=== PATIENT | female | born 1995 | race American Indian/Alaskan Native ===

== ENCOUNTER 2018-09-15 16:39 | Emergency (ER) | payer OTHER ==
[2018-09-15] MEDS ORDERED: Sodium Chloride 0.9% 1,000 ML IV ONE (17:24)
[2018-09-15 17:58] LABS: BASO % 0.2 % (0.0-2.0); HEMOGLOBIN 12.1 g/dL (11.0-16.0); LYMPH # 1.3 K/uL (1.0-4.3); LYMPH % 8.1 % (20.0-40.0); MEAN CELL VOLUME 90.3 fL (81.0-99.0); MEAN CORPUSCULAR HEMOGLOBIN 29.6 pg (27.0-31.0); MEAN CORPUSCULAR HGB CONC 32.7 g/dL (33.0-37.0); MEAN PLATELET VOLUME 9.4 fL (7.2-11.7); MONO # 1.8 K/uL (0.0-0.8); MONO % 11.5 % (0.0-10.0); NEUT # 12.8 K/uL (1.8-7.0); NEUT % 80.2 % (50.0-75.0); PLATELET COUNT 266 K/uL (130-400); RBC 4.11 Mil/uL (3.80-5.20); RED CELL DISTRIBUTION WIDTH 12.9 % (11.5-14.5)
[2018-09-15 18:01] VITALS: RESP 20
[2018-09-15 18:08] LABS: ALB/GLOB RATIO 1.3 (1.0-2.1); ALBUMIN 4.3 g/dL (3.5-5.0); ALT/SGPT 7 U/L (9-52); AST/SGOT 15 U/L (14-36); BLOOD UREA NITROGEN 10 mg/dL (7-17); CALCIUM 9.5 mg/dl (8.6-10.4); GFR NON-AFRICAN AMERICAN > 60
[2018-09-15 18:13] LABS: HCG,QUALITATIVE URINE NEGATIVE (NEGATIVE)
--- NOTE | 2018-09-15 18:16 | C.PDOC ---
History Of Present Illness 23 year old female presents to the ED complaining of fever for the past two days. She reports general body aches and possible mild dysuria. The patient denies any headache, neck stiffness, vomiting, SOB, cough, sore throat, runny nose, diarrhea or vaginal bleeding. She offers no further medical complaints at this time. Time Seen by Provider: 09/15/18 17:39 Chief Complaint (Nursing): Fever History Per: Patient History/Exam Limitations: no limitations Onset/Duration Of Symptoms: Days Current Symptoms Are (Timing): Still Present Associated Symptoms: Fever, Myalgias. denies: Chills, Sore Throat, Cough, Neck Pain, Vomiting, Diarrhea Recent travel outside of the [place]: No Past Medical History Reviewed: Historical Data, Nursing Documentation, Vital Signs Vital Signs: Last Vital Signs Temp 100.2 F H 09/15/18 18:00 Pulse 125 H 09/15/18 18:00 Resp 20 09/15/18 18:00 BP 100/66 09/15/18 18:00 Pulse Ox 100 09/15/18 18:00 - Medical History PMH: No Chronic Diseases Surgical History: No Surg Hx Family History: States: Unknown Family Hx - Social History Hx Alcohol Use: No Hx Substance Use: No Review Of Systems Except As Marked, All Systems Reviewed And Found Negative. Constitutional: Negative for: Fever ENT: Negative for: Nose Discharge, Other (sore throat) Respiratory: Negative for: Cough Gastrointestinal: Negative for: Vomiting, Diarrhea Musculoskeletal: Negative for: Neck Pain Physical Exam - Physical Exam Additional Physical Exam Comments: Constitutional: No acute distress. Head: Normocephalic. Atraumatic. Eyes: PERRL. ENT: Moist mucous membranes. Neck: Supple. Cardiovascular: Tachycardic. Radial pulse 2+ bilaterally. Chest: No tenderness. Respiratory: Clear to auscultation bilaterally. GI: Soft. Nontender. Nondistended. Back: No CVA tenderness. Musculoskeletal: No tenderness or swelling of extremities. Skin: No rash. warm to touch. Neurologic: Alert, no focal deficit. ED Course And Treatment - Laboratory Results Result Diagrams: 09/15/18 17:54 09/15/18 17:54 O2 Sat by Pulse Oximetry: 100 (RA) Pulse Ox Interpretation: Normal Against Medical Advice - AMA Patient Left Against Medical Advice: The patient declines admission to the hospital and wishes to leave the Emergency Department. This action is against my medical advice. This decision was made with informed refusal. The patient was told that admission to the hospital is necessary. Explanation of the reasons why were discussed. The risks of leaving were explained to the patient and include, but are not limited to, worsening of known or currently unknown conditions, permanent disability and from undiagnosed or untreated conditions. The patient has the capacity to make this informed decision and understands my explanation of the current medical problem and risks of leaving. The patient voluntarily accepts these risks and signed an AMA form documenting our conversation. The patient was given the opportunity to ask questions and reconsider. The pat ient was encouraged to return to the Emergency Department at any time for further care. Medical Decision Making Medical Decision Making: Impression: 23 yo female with fever x 2 days, general body aches and possible mild dysuria. Plan: -EKG -CMP -CBC -IV Fluids -Toradol 30 mg IV -Tylenol 325 mg -Urine culture -HCG -Ua UA shows UTI. Fever and HR improving but still elevated. Lactate 2.0. Patient offered admission but she refused. Disposition - Disposition Referrals: [facility] [Outside] Disposition: AGAINST MEDICAL ADVICE Disposition Time: 19:11 Condition: FAIR Prescriptions: Acetaminophen [Tylenol 325mg tab] 2 tab PO Q4H #30 tab Ciprofloxacin [Cipro] 500 mg PO BID #14 tab Ibuprofen [Motrin] 1 tab PO Q6 #30 tab Instructions: Urinary Tract Infections in Adults, Sepsis in Adults Forms: [facility] ([place]alander) - Clinical Impression Clinical Impression: UTI (urinary tract infection), Fever, Sepsis - Scribe Statement The provider has reviewed the documentation as recorded by the Scribe (Eulalia Serna) Provider Attestation: All medical record entries made by the Scribe were at my direction and personally dictated by me. I have reviewed the chart and agree that the record accurately reflects my personal performance of the history, physical exam, medical decision making, and the department course for this patient. I have also personally directed, reviewed, and agree with the discharge instructions and disposition.
[2018-09-15 18:18] LABS: BANDS 3 % (0-2); LARGE PLATELETS PRESENT; LYMPHOCYTE 8 % (20-40); MONOCYTE 7 % (0-10); NEUTROPHIL 82 % (50-75); PLATELET ESTIMATE NORMAL (NORMAL); TOTAL CELLS COUNTED 100
[2018-09-15 18:20] LABS: SQUAMOUS EPITHIAL 7 /hpf (0-5); URINE BACTERIA RARE (<OCC); URINE BILIRUBIN NEGATIVE (NEGATIVE); URINE BLOOD 2+ (NEGATIVE); URINE CLARITY Hazy (Clear); URINE COLOR Yellow (YELLOW); URINE GLUCOSE (UA) NORMAL (Normal); URINE LEUKOCYTE ESTERASE 3+ Leu/uL (Negative); URINE PROTEIN 1+ mg/dL (NEGATIVE); URINE UROBILINOGEN NORMAL mg/dL (0.2-1.0)
[2018-09-15 18:58] LABS: VENOUS BLOOD GAS BASE EXCESS -2.1 mmol/L (0.0-2.0); VENOUS BLOOD GAS PCO2 31 mmHg (40-60); VENOUS BLOOD GAS PO2 47 mm/Hg (30-55); VENOUS BLOOD PH 7.44 (7.32-7.43)
[2018-09-15 19:33] VITALS: BP 111/65; PULSE 113; TEMP 99.3; O2SAT 99
--- NOTE | 2018-09-18 19:12 | CARD ---
APPROVED REPORT Date of service: 09/15/2018 EKG Measurement Heart [id number] <Conclusion> Sinus tachycardia Right atrial enlargement Nonspecific ST and T wave abnormality Abnormal ECG
== END 2018-09-15 19:33 | disposition left against medical advice (07) ==
LOC: C.ER 16:39
DX: N39.0 Urinary tract infection, site not specified (principal); A41.9 Sepsis, unspecified organism; R50.9 Fever, unspecified
CPT/HCPCS: 80053; 81001; 82803; 84703; 85025; 87040; 87086; 87181; 87804; 96361; 96374; 99285; J1885; J7030

== ENCOUNTER 2018-09-17 18:57 | Emergency (ER) | payer OTHER ==
[2018-09-17 19:06] VITALS: O2SAT 100
--- NOTE | 2018-09-17 19:35 | C.PDOC ---
History Of Present Illness 23 year old female presents to the ER with a complaint of abdominal pain that began today. Patient was seen in the ER two days ago and diagnosed with UTI. She reports she has been compliant with her medications but still complains of dysuria and some subjective fever. Denies nausea, vomiting, or diarrhea. LMP was 09/01/18. During her initial visit patient was found to have 16 WBCs with a shift, normal lactate, UA was positive, flu swab was negative, final culture shows positive staph with sensitivity for cipro, patient was discharged on cipro. Time Seen by Provider: 09/17/18 19:19 Chief Complaint (Nursing): Abdominal Pain History Per: Patient History/Exam Limitations: no limitations Onset/Duration Of Symptoms: Hrs Current Symptoms Are (Timing): Still Present Location Of Pain/Discomfort: LLQ Radiation Of Pain To:: None Quality Of Discomfort: Unable To Describe Associated Symptoms: Fever (subjective), Urinary Symptoms (Dysuria). denies: Nausea, Vomiting, Diarrhea Exacerbating Factors: None Alleviating Factors: None Recent travel outside of the [place]: No Abnormal Vaginal Bleeding: No Last Menstral Period: 09/01/18 Past Medical History Reviewed: Historical Data, Nursing Documentation, Vital Signs Vital Signs: Last Vital Signs Temp 99.8 F H 09/17/18 19:04 Pulse 115 H 09/17/18 19:04 Resp 16 09/17/18 19:04 BP 119/78 09/17/18 19:04 Pulse Ox 100 09/17/18 19:04 Family History: States: Unknown Family Hx - Social History Hx Alcohol Use: No Hx Substance Use: No Review Of Systems Except As Marked, All Systems Reviewed And Found Negative. Constitutional: Positive for: Fever (subjective) Cardiovascular: Negative for: Chest Pain, Palpitations Respiratory: Negative for: Cough Gastrointestinal: Positive for: Abdominal Pain. Negative for: Nausea, Vomiting, Diarrhea Genitourinary: Positive for: Dysuria Neurological: Negative for: Weakness, Numbness Physical Exam - Physical Exam Appears: Non-toxic, No Acute Distress Skin: Normal Color, Warm, Dry Head: Atraumatic, Normacephalic Eye(s): bilateral: Normal Inspection Oral Mucosa: Moist Neck: Normal, Supple Chest: Symmetrical, No Tenderness Cardiovascular: Rhythm Regular Respiratory: Normal Breath Sounds, No Rales, No Rhonchi, No Wheezing Gastrointestinal/Abdominal: Soft, Tenderness (Minimal LLQ), No Guarding, No Rebound Back: No CVA Tenderness Neurological/Psych: Oriented x3, Normal Speech ED Course And Treatment - Laboratory Results Result Diagrams: 09/17/18 19:54 09/17/18 19:54 O2 Sat by Pulse Oximetry: 100 (Room air) Pulse Ox Interpretation: Normal Progress - Re-Evaluation Re-evaluation Note: 09/17/18 22:13 IMPROVED NAD NONTOXIC VSS. US REPORT REVIEWED. DC ADVISED FINISH ABX PRESCRIBED, NSAIDS AND TYLENOL - Data Reviewed Data Reviewed: Lab, Diagnostic imaging, Old records Medical Decision Making Medical Decision Making: Plan: * Blood work * Urinalysis * Transvaginal US * Morphine Disposition Counseled Patient/Family Regarding: Studies Performed, Diagnosis, Need For Followup - Disposition Referrals: [facility] [Outside] [facility] [Outside] Disposition: HOME/ ROUTINE Disposition Time: 22:15 Condition: IMPROVED Instructions: Acute Pelvic Pain (DC) Forms: [employer] ([place]ian) - Clinical Impression Clinical Impression: Pelvic pain - Scribe Statement The provider has reviewed the documentation as recorded by the Scribsola Wagoner All medical record entries made by the Scribe were at my direction and personally dictated by me. I have reviewed the chart and agree that the record accurately reflects my personal performance of the history, physical exam, medical decision making, and the department course for this patient. I have also personally directed, reviewed, and agree with the discharge instructions and disposition.
[2018-09-17] MEDS ORDERED: Morphine 4 MG/ML VIAL ONE (19:47)
[2018-09-17 19:58] LABS: BASO # 0.1 K/uL (0.0-0.2); BASO % 0.5 % (0.0-2.0); EOS % 0.3 % (0.0-4.0); HEMOGLOBIN 11.4 g/dL (11.0-16.0); LYMPH # 1.5 K/uL (1.0-4.3); LYMPH % 14.3 % (20.0-40.0); MEAN CELL VOLUME 90.3 fL (81.0-99.0); MEAN CORPUSCULAR HEMOGLOBIN 29.8 pg (27.0-31.0); MEAN PLATELET VOLUME 8.8 fL (7.2-11.7); MONO # 1.1 K/uL (0.0-0.8); MONO % 10.2 % (0.0-10.0); NEUT # 8.1 K/uL (1.8-7.0); NEUT % 74.7 % (50.0-75.0); RBC 3.81 Mil/uL (3.80-5.20); RED CELL DISTRIBUTION WIDTH 12.8 % (11.5-14.5); WHITE BLOOD COUNT 10.8 K/uL (4.8-10.8)
[2018-09-17 20:21] LABS: ALB/GLOB RATIO 1.1 (1.0-2.1); ALBUMIN 3.7 g/dL (3.5-5.0); ALT/SGPT 17 U/L (9-52); AST/SGOT 15 U/L (14-36); BLOOD UREA NITROGEN 10 mg/dL (7-17); CALCIUM 9.2 mg/dl (8.6-10.4); GFR NON-AFRICAN AMERICAN > 60
[2018-09-17 21:42] LABS: HCG,QUALITATIVE URINE NEGATIVE (NEGATIVE)
[2018-09-17 21:43] LABS: SQUAMOUS EPITHIAL 2 /hpf (0-5); URINE BILIRUBIN NEGATIVE (NEGATIVE); URINE BLOOD NEGATIVE (NEGATIVE); URINE CLARITY Clear (Clear); URINE COLOR Straw (YELLOW); URINE GLUCOSE (UA) NORMAL (Normal); URINE LEUKOCYTE ESTERASE NEG Leu/uL (Negative); URINE PROTEIN NEGATIVE (NEGATIVE); URINE UROBILINOGEN NORMAL mg/dL (0.2-1.0)
[2018-09-17 22:19] VITALS: BP 110/70; PULSE 97; RESP 20; TEMP 99.2
--- NOTE | 2018-09-18 09:58 | US ---
Date of service: 09/17/2018 HISTORY: Pelvic pain COMPARISON: None available. TECHNIQUE: Real-time sonography was performed through the pelvis utilizing transabdominal transvaginal techniques. FINDINGS: UTERUS: Measures 6.7 x 3.5 x 4.3 cm. Normal in size and appearance. Heterogeneous lesions suggestive for fibroid lesions seen within the mid uterus measuring 1.8 x 1.4 x 1.7 centimeters, posterior uterus measuring 6 x 5 x 6 millimeters, and anterior uterus measuring 6 x 6 x 7 millimeters. ENDOMETRIUM: Measures 9 mm in diameter. Heterogeneous to echogenic appearance. CERVIX: No cervical abnormality identified. RIGHT OVARY: Measures 2.8 x 1.6 x 2.3 cm. No solid mass. Normal flow. Small follicles. LEFT OVARY: Measures 3.1 x 2.0 x 2.6 cm. No solid mass. Normal flow. Small follicles. FREE FLUID: Free fluid noted within the pelvic cul-de-sac. OTHER FINDINGS: status unknown. Clinical correlation. IMPRESSION: Heterogeneous lesions within the uterus suggestive for fibroid lesions. Small amount of free fluid within the pelvic cul-de-sac.
== END 2018-09-17 22:26 | disposition home or self-care (01) ==
LOC: C.ER 18:57
DX: R10.2 Pelvic and perineal pain (principal)
CPT/HCPCS: 76830; 76856; 80053; 81001; 84703; 85025; 96374; 99284; J2270